=== PATIENT | male | born 1970 | race Caucasian/White ===

== ENCOUNTER 2016-11-22 14:09 | Emergency (ER) | payer SELFPAY ==
[2016-11-22 14:15] VITALS: BP 151/98; BMI 27.3
--- NOTE | 2016-11-22 15:09 | DR.GENAD ---
HPI - PCP Primary Care Physician: NFD - Complaint/Symptoms Chief Complaint:: THROAT, SWOLLEN, FEVER, FLU LIKE SYMTOMS Self Treatment fo Chief Complaint: OTC - Nurses notes reviewed Nurses Notes Review: Yes - Source History Provided: Patient - Mode of Arrival Mode of Arrival: Ambulatory - Timing Onset of Chief Complaint: 11/18/16 Came on: Gradually - Duration Duration: Intermittent How lon Duration: Days - Location Location: throat - Severity Severity: Moderate - Modifying Factors Worsens:: swallowing - Associated Signs and Symptoms Associated Signs and Symptoms: fever PMH - PMH Past Medical History: No Past Surgical History: Yes Surgical History: Other Past Surgical History Comment: HERNIA - Family History History of Family Medical Conditions: No - Social History Type of Tobacco Use: Cigarettes Does any household member use tobacco: Yes Alcohol Use: DAILY Do you use any recreational Drugs:: No Lives With: Alone Lives Where: Home - infectious screening In the last 2 months have you had wt loss of >10#?: NO Have you had fever, night sweats or hemotysis?: No Have you traveled outside the country in the last 6 months?: No Isolation: Standard ROS - Review of Systems Constitutional: Fever Eyes: No Symptoms Reported ENTM: Throat Pain Respiratoy: No Symptoms Reported Cardiovascular: No Symptoms Reported Gastrointestinal/Abdominal: No Symptoms Reported Genitourinary: No Symptoms Reported Neurological: No Symptoms Reported Musculoskeletal: No Symptoms Reported Integumentary: No Symptoms Reported Hematologic/Lymphatic: No Symptoms Reported Endocrine: No Symptoms Reported Psychiatric: No Symptoms Reported All Other Systems: Reviewed and Negative PE - Vital Signs Vitals: Temperature 99 F Pulse Rate 93 Respiratory Rate 16 Blood Pressure 151/98 O2 Sat by Pulse Oximetry 100 - General Limitations: No Limitations General Appearance: Alert, In No Apparent Distress - Head Head Exam: Normal Inspection - Eyes Eye exam: Normal Appearance, EOMI. negative: Scleral Icterus, Conjunctival Injection - ENT ENT Exam: negative: Normal Oropharynx (uvual white appearance) External Ear Exam: Normal External Inspection - Neck Neck Exam: Normal Inspection, Full ROM, Trachea Midline - Chest Chest Inspection: Normal Inspection - Respiratory Respiratory Exam: Normal Lung Sounds Bilat, Prolonged Expiratory Phase. negative: Accessory Muscle Use, Respiratory Distress Respiratory Exam: Bilateral Clear to Auscultation - Cardiovascular Cardiovascular Exam: Regular Rate - Abdominal Exam Abdominal Exam: Normal Inspection - Extremities Extremities Exam: Normal Inspection, Full ROM - Back Back Exam: Normal Inspection - Neurologic Neurological Exam: Alert, Oriented X3, CN II-XII Intact - Psychiatric Psychiatric Exam: Normal Mood - Skin Skin Exam: Intact, Normal Color ROR - Labs Reviewed Laboratory: Urine Opiates Screen Positive (NEG=<300) 11/22/16 15:35 Urine Methadone Screen Negative (NEG=<300) 11/22/16 15:35 Ur Barbiturates Screen Negative (NEG=<200) 11/22/16 15:35 Ur Phencyclidine Scrn Negative (NEG=<25) 11/22/16 15:35 Ur Amphetamines Screen Positive (NEG=<1000) 11/22/16 15:35 U Benzodiazepines Scrn Negative (NEG=<200) 11/22/16 15:35 Urine Cocaine Screen Positive (NEG=<300) 11/22/16 15:35 U Marijuana (THC) Screen Positive (NEG=<50) A 11/22/16 15:35 Streptococcus Screen Negative (NEGATIVE) 11/22/16 15:35 - Diagnosis Discharge Problem: Chemical burn, Polysubstance abuse - Discharge Plan Condition: Stable - Follow ups/Referrals Follow ups/Referrals: NFD,None [Primary Care Provider] - 3 days - Instructions
[2016-11-22] MEDS ORDERED: ULTRAM PO ONE (16:28)
[2016-11-22] MEDS ORDERED: AMOXIL CAP 500 MG PO ONE ×2 (16:28→16:30)
[2016-11-22] MEDS ORDERED: ULTRAM ONE (16:31)
== END 2016-11-22 16:39 | disposition home or self-care (01) ==
LOC: ER 14:19
DX: F12.10 Cannabis abuse, uncomplicated (principal); T30.0 Burn of unspecified body region, unspecified degree
CPT/HCPCS: 80307; 87070; 87880; 99282; G0434